=== PATIENT | male | born 1965 | race Caucasian/White ===

== ENCOUNTER 2020-01-19 20:38 | Emergency (ER) | payer SELFPAY ==
[~2020-01-19] VITALS: Ht 172.7 cm; Wt 104.3 kg
--- NOTE | 2020-01-19 20:39 | NUR ---
PT BIBA TO BED 08.
[2020-01-19 20:47] VITALS: BP 149/89
--- NOTE | 2020-01-19 20:47 | NUR ---
54 Y/O MALE BIBA FROM HOME C/O FEVER, COUGH, SOB X10 DAYS. TESTED COVID+ ON WEDNESDAY. PT STATES 7/10 BURNING PAIN ON CHEST RADIATING TO BACK. +N/V. DENIES DIARRHEA. RX:TYLENOL, WITH LITTLE RELIEF MEDHX: NONE NKA
--- NOTE | 2020-01-19 21:17 | NUR ---
ERMD AT BEDSIDE EVALUATING PT
--- NOTE | 2020-01-19 21:28 | NUR ---
XRAY AT BEDSIDE
[2020-01-19 21:53] LABS: BASOPHILS % (AUTO) 0.3 % (0.0-2.0); EOSINOPHILS % (AUTO) 0.4 % (0.0-4.0); HEMATOCRIT 45.4 % (36-52); HEMOGLOBIN 15.8 g/dL (12.0-18.0); LYMPHOCYTES # (AUTO) 1.2 K/uL (2.0-11.5); LYMPHOCYTES % (AUTO) 25.3 % (20.5-51.1); MEAN CORPUSCULAR HEMOGLOBIN 30 pg (27-31); MEAN CORPUSCULAR HGB CONC 35 g/dL (33-37); MEAN CORPUSCULAR VOLUME 85.6 fL (80-94); MONOCYTES # (AUTO) 0.5 K/uL (0.8-1.0); MONOCYTES % (AUTO) 10.6 % (1.7-9.3); NEUTROPHILS % (AUTO) 63.4 % (42.2-75.2); PLATELET COUNT (AUTO) 181 K/uL (140-450); RED CELL DISTRIBUTION WIDTH 12.8 % (11.6-13.7); WHITE BLOOD COUNT (AUTO) 4.7 K/uL (4.8-10.8)
[2020-01-19 22:08] LABS: ALBUMIN 3.4 g/dL (3.4-5.0); ANION GAP 14.2 (8-16); CARBON DIOXIDE 23.2 mmol/L (21-32); CREATININE 0.9 mg/dL (0.6-1.3); POTASSIUM 3.4 mmol/L (3.5-5.1); TOTAL BILIRUBIN 0.5 mg/dL (0.0-1.0)
[2020-01-19 23:07] VITALS: BP 133/88
--- NOTE | 2020-01-19 23:07 | NUR ---
Patient discharged with v/s stable. Written and verbal after care instructions given and explained. Patient alert, oriented and verbalized understanding of instructions. Ambulatory with steady gait. All questions addressed prior to discharge. ID band removed. Patient advised to follow up with PMD. Rx of ALBUTEROL, PREDNISONE, AND TESSALON PERLES given. Patient educated on indication of medication including possible reaction and side effects. Opportunity to ask questions provided and answered.
== END 2020-01-19 23:07 | disposition home or self-care (01) ==
LOC: MED 20:38
DX: U07.1 COVID-19 (principal); J18.9 Pneumonia, unspecified organism
CPT/HCPCS: 36415; 71045; 80053; 83880; 84484; 85025; 93005; 99285